=== PATIENT | female | born 1970 | race Caucasian/White ===

== ENCOUNTER 2024-10-30 03:55 | Inpatient (IN) | payer OTHER ==
[2024-10-30] MEDS ORDERED: ACETAMINOPHEN INJECTION 100 ML ONE (04:35)
[2024-10-30] MEDS ORDERED: ONDANSETRON 4 MG/2 ML VIAL ONE (04:36)
[2024-10-30] MEDS: ACETAMINOPHEN 1000 MG/100 ML BAG IVPB ONE (04:41)
[2024-10-30] MEDS: ONDANSETRON 4 MG/2 ML VIAL IVPB ONE (04:41)
[2024-10-30 04:47] LABS: MCHC 33.6 g/dl (32.2-35.5); MEAN CELL VOLUME 93.2 fl (79.4-94.8); MEAN PLT VOLUME 8.7 fl (9.4-12.3); RDW 11.9 % (12.3-16.6)
[2024-10-30] MEDS ORDERED: FAMOTIDINE 20 MG/50 ML IVPB 20 MG/50 ML MG IVPB ONE (04:55)
[2024-10-30 04:57] LABS: INR 0.96 (0.83-1.09); PROTHROMBIN TIME (PATIENT) 10.6 SEC (9.7-13.0)
[2024-10-30 05:00] LABS: ACTIVATED PTT 29.9 SECONDS (25.2-36.5)
[2024-10-30 05:03] LABS: URINE APPEARANCE CLEAR; URINE BILIRUBIN NEGATIVE (NEGATIVE); URINE COLOR YELLOW; URINE GLUCOSE (UA) NEGATIVE (NEGATIVE); URINE KETONE NEGATIVE (NEGATIVE); URINE LEUK ESTERASE NEGATIVE (NEGATIVE); URINE NITRITE NEGATIVE (NEGATIVE); URINE PROTEIN NEGATIVE (NEGATIVE); URINE UROBILINOGEN 0.2 mg/dL (0.2-1.0)
[2024-10-30] MEDS: FAMOTIDINE 20 MG/50 ML IVPB 20 MG/50 ML MG IVPB ONE (05:05)
[2024-10-30 05:06] LABS: HCG,QUALITATIVE URINE Negative
[2024-10-30 05:10] LABS: CO2 26.0 mmol/L (21-32); GLUCOSE,RANDOM 107.0 mg/dL (74-106)
[2024-10-30 05:12] LABS: SGOT/AST 382.0 U/L (15-37); SGPT/ALT 223.0 U/L (13-61)
[2024-10-30 05:13] LABS: CREATININE 0.9 mg/dL (0.55-1.3)
[2024-10-30 05:14] LABS: TOT PROT 6.4 g/dl (6.4-8.2)
[2024-10-30 05:15] LABS: ALK PHOS 50.0 U/L (45-117)
[2024-10-30 05:18] LABS: LACTIC ACID 2.3 mmol/L (0.4-2.0)
[2024-10-30] MEDS: SODIUM CHLORIDE 0.9% 500 ML INFUS.BAG IV ONE (06:13)
[2024-10-30] MEDS: MIDAZOLAM HCL 2 MG/2 ML SINGLE DOSE VIAL IVPUSH ONE (06:24)
[2024-10-30] MEDS ORDERED: PIPERACILLIN/TAZOB 4.5 GM 4.5 GM/100 ML BAG IVPB ONE (07:43)
[2024-10-30] MEDS ORDERED: VANCOMYCIN 1 GM PREMIX (F) 1 GM/200 ML BAG ONE (07:43)
[2024-10-30] MEDS: VANCOMYCIN 1,000 MG in DEXTROSE 5%-WATER - 250 ML IVPB ONE (08:01)
[2024-10-30] MEDS: PIPERACILLIN/TAZOB 4.5 GM 4.5 GM in DEXTROSE 5%-WATER 100 ML IVPB ONE (08:01)
[2024-10-30] MEDS ORDERED: POTASSIUM CHLORIDE ORAL LIQUID 20 MEQ/15 ML ONE (12:16)
[2024-10-30] MEDS: POTASSIUM CHLORIDE ORAL LIQUID 20 MEQ/15 ML PO ONE (12:21)
[2024-10-30 13:11] LABS: HCV DIAGNOSTIC IN-HOUSE W/RFLX NON-REACTIVE (NONREACTIVE)
[2024-10-30 13:13] LABS: HIV INTERPRETATION NEGATIVE (NEGATIVE)
[2024-10-30] MEDS ORDERED: ALBUTEROL SO4 2.5/IPRATROPIUM 0.5 INH SOL 3 ML VIAL.NEB. NEB PRN (14:27)
[2024-10-30] MEDS ORDERED: ONDANSETRON 4 MG/2 ML VIAL IVPUSH PRN (14:30)
[2024-10-30] MEDS: SODIUM CHLORIDE 0.45% 1,000 ML IV SCH (15:57)
[2024-10-30] MEDS: PANTOPRAZOLE 40 MG TABLET PO SCH (15:57)
[2024-10-30] MEDS ORDERED: PANTOPRAZOLE 40 MG TABLET PO ONE (15:58)
[2024-10-30] MEDS ORDERED: PIPERACILLIN/TAZOB 3.375 GM 3.375 GM/50 ML BAG IVPB ONE (18:55)
[2024-10-30] MEDS: PIPERACILLIN/TAZOB 3.375 GM 3.375 GM in DEXTROSE 5%-WATER - 50 ML IVPB SCH (19:01)
[2024-10-30 21:14] VITALS: BMI 31.4
[2024-10-31 08:56] LABS: ABSOLUTE IMMATURE GRANULOCYTES 0.03 x10^3/uL (0.0-0.031); BASOPHILS # 0.04 x10^3/uL (0.01-0.08); EOSINOPHIL % 5.1 % (0.7-5.8); EOSINOPHILS # 0.34 x10^3/uL (0.04-0.36); MCHC 33.5 g/dl (32.2-35.5); MEAN CELL VOLUME 93.4 fl (79.4-94.8); MEAN PLT VOLUME 9.0 fl (9.4-12.3); MONOCYTE # 0.42 x10^3/uL (0.24-0.86); MONOCYTE % 6.3 % (4.7-12.5); RDW 12.2 % (12.3-16.6)
[2024-10-31 09:46] LABS: CO2 25.0 mmol/L (21-32); GLUCOSE,RANDOM 80.0 mg/dL (74-106)
[2024-10-31 09:49] LABS: CREATININE 0.9 mg/dL (0.55-1.3); SGOT/AST 661.0 U/L (15-37)
[2024-10-31 09:51] LABS: TOT PROT 5.7 g/dl (6.4-8.2)
[2024-10-31 09:52] LABS: ALK PHOS 81.0 U/L (45-117)
[2024-10-31 10:00] LABS: SGPT/ALT 1088.0 U/L (13-61)
[2024-10-31] MEDS: ENOXAPARIN NA (PORCINE) 40 MG/0.4 ML DISP.SYRIN SQ SCH (10:37)
[2024-11-01] MEDS ORDERED: ONDANSETRON 4 MG/2 ML VIAL ONE (07:49)
[2024-11-01] MEDS ORDERED: DEXAMETHASONE SOD PHOSPHATE 4 MG/1 ML VIAL ONE (07:49)
[2024-11-01] MEDS ORDERED: PROPOFOL 20 ML ONE (07:49)
[2024-11-01] MEDS ORDERED: ePHEDrine SULFATE 50 MG/1 ML AMPULE ONE (07:49)
[2024-11-01] MEDS ORDERED: LIDOCAINE HCL 2% 100 MG/5 ML DISP.SYRIN ONE (07:49)
[2024-11-01] MEDS ORDERED: MIDAZOLAM HCL 2 MG/2 ML SINGLE DOSE VIAL ONE (07:50)
[2024-11-01] MEDS: ceFAZolin 2 GRAM PREMIX BAG IVPB ONE (08:04)
[2024-11-01 08:27] LABS: ABSOLUTE IMMATURE GRANULOCYTES 0.02 x10^3/uL (0.0-0.031); BASOPHILS # 0.05 x10^3/uL (0.01-0.08); EOSINOPHIL % 5.7 % (0.7-5.8); EOSINOPHILS # 0.26 x10^3/uL (0.04-0.36); MCHC 33.6 g/dl (32.2-35.5); MEAN CELL VOLUME 94.1 fl (79.4-94.8); MEAN PLT VOLUME 9.0 fl (9.4-12.3); MONOCYTE # 0.42 x10^3/uL (0.24-0.86); MONOCYTE % 9.2 % (4.7-12.5); RDW 12.1 % (12.3-16.6)
[2024-11-01] MEDS ORDERED: ONDANSETRON 4 MG/2 ML VIAL IVPUSH PRN ×2 (08:31→08:52)
[2024-11-01 08:36] LABS: INR 1.06 (0.83-1.09); PROTHROMBIN TIME (PATIENT) 11.5 SEC (9.7-13.0)
[2024-11-01] MEDS ORDERED: ALBUTEROL SO4 2.5/IPRATROPIUM 0.5 INH SOL 3 ML VIAL.NEB. NEB PRN (08:52)
[2024-11-01] MEDS: SODIUM CHLORIDE 0.45% 1,000 ML IV SCH (09:00)
[2024-11-01 09:10] LABS: CO2 30.0 mmol/L (21-32); GLUCOSE,RANDOM 79.0 mg/dL (74-106)
[2024-11-01 09:14] LABS: CREATININE 1.0 mg/dL (0.55-1.3); SGOT/AST 288.0 U/L (15-37); SGPT/ALT 811.0 U/L (13-61)
[2024-11-01 09:15] LABS: TOT PROT 6.6 g/dl (6.4-8.2)
[2024-11-01 09:17] LABS: ALK PHOS 77.0 U/L (45-117)
[2024-11-01] MEDS: LORazepam 4 MG/1 ML VIAL IVPUSH ONE (10:24)
[2024-11-01] MEDS: PANTOPRAZOLE 40 MG TABLET PO SCH (10:24)
[2024-11-01] MEDS: PIPERACILLIN/TAZOB 3.375 GM 3.375 GM in DEXTROSE 5%-WATER - 50 ML IVPB SCH (11:45)
[2024-11-01] MEDS: ENOXAPARIN NA (PORCINE) 40 MG/0.4 ML DISP.SYRIN SQ SCH (11:46)
[2024-11-01] MEDS: morphine CARPU-JECT 2 MG/1 ML DISP.SYRIN IVPUSH PRN (14:57)
[2024-11-01 15:32] LABS: HEPATITIS B SURF AG NON-MATERN NON-REACTIVE (NONREACTIVE)
[2024-11-01 16:18] LABS: HCV DIAGNOSTIC IN-HOUSE W/RFLX NON-REACTIVE (NONREACTIVE)
[2024-11-01 21:33] VITALS: RESP 18
[2024-11-02] MEDS: PIPERACILLIN/TAZOB 3.375 GM 3.375 GM in DEXTROSE 5%-WATER - 50 ML IVPB SCH (01:42)
[2024-11-02] MEDS: LACTATED RINGERS SOLUTION 1,000 ML IV SCH (01:43)
[2024-11-02 09:09] LABS: MCHC 33.5 g/dl (32.2-35.5); MEAN CELL VOLUME 92.7 fl (79.4-94.8); MEAN PLT VOLUME 8.9 fl (9.4-12.3); RDW 12.0 % (12.3-16.6)
[2024-11-02 09:56] LABS: GLUCOSE,RANDOM 102.0 mg/dL (74-106)
[2024-11-02 09:58] LABS: CO2 27.0 mmol/L (21-32)
[2024-11-02 09:59] LABS: CREATININE 1.0 mg/dL (0.55-1.3); SGOT/AST 118.0 U/L (15-37); SGPT/ALT 569.0 U/L (13-61)
[2024-11-02 10:01] LABS: TOT PROT 7.1 g/dl (6.4-8.2)
[2024-11-02 10:02] LABS: ALK PHOS 78.0 U/L (45-117)
[2024-11-02] MEDS: PIPERACILLIN/TAZOB 3.375 GM 3.375 GM in DEXTROSE 5%-WATER - 50 ML IVPB ONE (19:46)
[2024-11-03] MEDS: PIPERACILLIN/TAZOB 3.375 GM 3.375 GM in DEXTROSE 5%-WATER - 50 ML IVPB SCH (04:23)
[2024-11-03 11:42] LABS: ABSOLUTE IMMATURE GRANULOCYTES 0.02 x10^3/uL (0.0-0.031); BASOPHILS # 0.06 x10^3/uL (0.01-0.08); EOSINOPHIL % 1.4 % (0.7-5.8); EOSINOPHILS # 0.11 x10^3/uL (0.04-0.36); MCHC 33.2 g/dl (32.2-35.5); MEAN CELL VOLUME 92.7 fl (79.4-94.8); MEAN PLT VOLUME 8.7 fl (9.4-12.3); MONOCYTE # 0.69 x10^3/uL (0.24-0.86); MONOCYTE % 8.6 % (4.7-12.5); RDW 12.2 % (12.3-16.6)
[2024-11-03 12:22] LABS: CO2 27.0 mmol/L (21-32); GLUCOSE,RANDOM 94.0 mg/dL (74-106)
[2024-11-03 12:25] LABS: SGPT/ALT 385.0 U/L (13-61)
[2024-11-03 12:26] LABS: CREATININE 0.9 mg/dL (0.55-1.3); SGOT/AST 54.0 U/L (15-37)
[2024-11-03 12:27] LABS: TOT PROT 7.2 g/dl (6.4-8.2)
[2024-11-03 12:28] LABS: ALK PHOS 64.0 U/L (45-117)
[2024-11-03] MEDS: LOSARTAN POTASSIUM 50 MG TABLET PO SCH (13:54)
[2024-11-03] MEDS: POTASSIUM CHLORIDE TABS 20 MEQ TABLET.ER (FP) PO ONE (18:14)
[2024-11-04 07:30] VITALS: TEMP 98.1
[2024-11-04 08:01] LABS: MCHC 33.0 g/dl (32.2-35.5); MEAN CELL VOLUME 93.4 fl (79.4-94.8); MEAN PLT VOLUME 9.0 fl (9.4-12.3); RDW 12.3 % (12.3-16.6)
[2024-11-04 08:02] LABS: CO2 28.0 mmol/L (21-32)
[2024-11-04 08:04] LABS: GLUCOSE,RANDOM 87.0 mg/dL (74-106)
[2024-11-04 08:05] LABS: CREATININE 0.7 mg/dL (0.55-1.3); SGOT/AST 38.0 U/L (15-37); SGPT/ALT 268.0 U/L (13-61)
[2024-11-04 08:07] LABS: TOT PROT 5.8 g/dl (6.4-8.2)
[2024-11-04 08:08] LABS: LDL CHOLESTEROL (ONLY SJRH) 80.0 mg/dL (5-100)
[2024-11-04 08:09] LABS: ALK PHOS 54.0 U/L (45-117)
[2024-11-04 13:26] VITALS: BP 131/76; PULSE 71
== END 2024-11-04 16:42 | disposition home or self-care (01) | DRG 139 ==
LOC: JER 03:55 → JERBED 07:42 → J7W 20:56
PROVIDERS: ADMIT Internal Medicine; ATTEND Student in an Organized Health Care Education/Training Program
PROC: 0T788DZ Dilation of Bilateral Ureters with Intraluminal Device, Via Natural or Artificial Opening Endoscopic (ICD-10-PCS; principal; 2024-11-01 07:30)
PROC: BT14ZZZ Fluoroscopy of Kidneys, Ureters and Bladder (ICD-10-PCS; 2024-11-01 07:30)
DX: J18.9 Pneumonia, unspecified organism (principal); I11.0 Hypertensive heart disease with heart failure; I50.9 Heart failure, unspecified; N13.30 Unspecified hydronephrosis; D25.9 Leiomyoma of uterus, unspecified; I10 Essential (primary) hypertension; R74.01 Elevation of levels of liver transaminase levels; I44.0 Atrioventricular block, first degree
CPT/HCPCS: 36415; 71045-TC-FY; 71250-TC; 74174-TC; 74181-TC; 76000-TC-FY; 76705-TC; 80048; 80053; 80061; 80076; 81003; 82550; 82553; 82962; 83036; 83605; 83690; 83735; 83880; 84100; 84484; 84703; 85025; 85027; 85610; 85730; 86704; 86708; 86803; 87086; 87340; 87389; 87517; 87899; 93005; 93010; 93306-TC; 94760; 99285-25; C1758; C2617